=== PATIENT | male | born 1950 ===

== ENCOUNTER 2020-09-03 21:45 | Emergency (ER) | payer MEDICARE, OTHER ==
[2020-09-03] MEDS ORDERED: Lidocaine 1% PF 5 ML VIAL ONE (23:40)
[2020-09-03] MEDS ORDERED: Boostrix 0.5 ML (Tdap) VIAL ONE (23:53)
[2020-09-04] MEDS ORDERED: Lidocaine 1% w/Epinephrine 1:100K 20 ML VIAL ONE ×2 (00:23→00:24)
[2020-09-04] MEDS ORDERED: Bacitracin 1 PK ONE (01:37)
== END 2020-09-04 01:54 | disposition home or self-care (01) ==
LOC: ERS 21:45
DX: S09.90XA Unspecified injury of head, initial encounter (principal); S91.311A Laceration without foreign body, right foot, initial encounter; E11.9 Type 2 diabetes mellitus without complications; I10 Essential (primary) hypertension; W01.0XXA Fall on same level from slipping, tripping and stumbling without subsequent striking against object, initial encounter
CPT/HCPCS: 12002; 70450; 72125; 90471; 90715

== ENCOUNTER 2020-09-12 15:41 | Emergency (ER) | payer MEDICARE | END 2020-09-12 16:05 | disposition home or self-care (01) | LOC: ERS 15:41 | DX: S91.311D Laceration without foreign body, right foot, subsequent encounter (principal); E11.9 Type 2 diabetes mellitus without complications; I10 Essential (primary) hypertension ==